=== PATIENT | male | born 2000 | race Caucasian/White ===

== ENCOUNTER 2024-12-21 16:48 | Emergency (ER) | payer OTHER, SELFPAY ==
--- OUTSIDE RECORDS SUMMARY | 2024-12-21 16:56 | XMS_ITS | Clinical Summary ---
Author Organization [facility] Address [address] [place] [address] Care Team Providers Care Director Of Operations Support Name Role Phone Unavailable Primary Care Provider Unavailabl e Social History Tobacco Use Types Packs/Day Years Used Date Smoking Tobacco: Never Assessed Sex and Gender Information Value Date Recorded Sex Assigned at Not on file Legal Sex Male 11:13 AM [employer] Gender Identity Not on file Sexual Orientation Not on file Plan of Treatment Health Maintenance Due Date Last Done Comments Hepatitis C Virus (HCV) Screening 1999 TdaP Immunization 1999 Human Papillomavirus (HPV) Immunization (1 - Male 3-dose series) 2014 Hepatitis B Immunization (1 of 3 - 19+ 3-dose series) 2018 Influenza Immunization (#1) 2024 09/02/2020 SARS-COV-2 Immunization ( - 2023- season) 2024 Respiratory Syncytial Virus (RSV) Immunization (Adult) (1 - 1-dose 75+ series) 2074 Meningococcal Immunization (ACWY) Aged Out No longer eligible based on patient's age to complete this topic Pneumococcal Immunization Combined Aged Out No longer eligible based on patient's age to complete this topic Rotavirus Immunization Aged Out No lo nger eligible based on patient's age to complete this topic Insurance [employer] on file
[2024-12-21 17:09] VITALS: BP 138/67; PULSE 67; RESP 16; TEMP 37; O2SAT 99
--- NOTE | 2024-12-21 17:37 | ED_ITS ---
HPI - General Adult General Chief complaint: Extremity Injury, Lower Stated complaint: Swollen/Pain Toe Time Seen by Provider: 12/21/24 17:20 Source: patient, RN notes reviewed and old records reviewed Mode of arrival: ambulatory Limitations: no limitations History of Present Illness HPI narrative: 24 year old male who presents to [facility] care with complaints of pain and swelling to the left great toe with redness around the top of his nail bed this morning. 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 This morning after his run he noted increased redness and swelling of left great toe at the top of his nail bed. Patient has no fluctuation of tissue around nail bed or any bruising noted. Patient has strong left pedal pulse.Patient has taken some Ibuprofen for his discomfort. MD complaint: left great toe pain and redness Onset (ago): hour(s) (this morning increased pain after run) Location: left and lower extremity (great toe) Severity: mild Treatments prior to arrival: NSAID Related Data Allergies Allergy/AdvReac Type Severity Reaction Status Date / Time No Known Allergies Allergy Verified 12/21/24 17:18 Review of Systems Review of Systems: CONSTITUTIONAL: Denies fever, chills, or sweats. CARDIOVASCULAR: Denies chest pain, palpitations, or edema. RESPIRATORY: Denies cough or dyspnea. GASTROINTESTINAL: Denies abdominal pain, nausea, vomiting SKIN: Reports redness and swelling to the lleft great toe along top of nail bed, no fluctuation of tissue no purulent drainage, vesicles, bullae, numbness,no pain beyond proportion MUSCULOSKELETAL: Denies myalgia. NEUROLOGIC: Denies headache, numbness All systems reviewed & are unremarkable except as noted in HPI and below PMFSH Social History Social History (Updated 12/23/24 @ 20:36 by Michelle Weaver NP) Smoking status: Never smoker Alcohol intake: current Alcohol use details: social Substance use type: does not use Living arrangements: with family Gender identity (if verbalized by the patient): Male Comments At time of signature, agree with nursing past medical, surgical, social and family history. There is no relevant family history pertinent to the presenting complaint Exam Narrative: GENERAL: Well-appearing, well-nourished, and in no acute distress. HEAD: Normocephalic, atraumatic. EYES: PERRLA and EOMI. ENT: Nares clear, no rhinorrhea or epistaxis. Mucous membranes moist. NECK: Supple. CHEST: Clear to auscultation. No respiratory distress.SAO2 99% on room air HEART: Regular rate and rhythm. No murmur heard. Normal peripheral pulses. ABDOMEN: Soft, nontender, nondistended, normal active bowel sounds. EXTREMITIES: Normal range of motion. No edema. SKIN: Warm, dry. Erythema, induration, tenderness to the tissue around top of nail bed of left great toe. no warmth, No vesicles, bullae, necrosis, or, ecchymosis. NEURO: No focal deficits. Alert and oriented x3. Course Course Emergency Course: Patient is aware of diagnosis, understands and agrees to treatment plan. Anticipatory guidance given. Patient agrees to follow-up as directed and is aware of reasons to seek care at the emergency department. Portions of this record may have been created with voice recognition software Level of Care: Express Care Visit Vital Signs Vital signs: Vital Signs Temperature 37.0 C 12/21/24 17:09 Pulse Rate 67 12/21/24 17:09 Respiratory Rate 16 12/21/24 17:09 Blood Pressure 138/67 12/21/24 17:09 Pulse Oximetry 99 12/21/24 17:09 Oxygen Delivery Room Air 12/21/24 17:09 Temperature 37.0 C 12/21/24 17:09 Pulse Rate 12/21/24 17:09 Respiratory Rate 16 12/21/24 17:09 Blood Pressure 138/67 12/21/24 17:09 Pulse Oximetry 99 12/21/24 17:09 Oxygen Delivery Room Air 12/21/24 17:09 Reviewed Medical Decision Making Differential Diagnosis Differential Diagnosis: irritation and redness of left great toe, paronychia, Pain along top of left great toe nail bed. Medical Records Medical records reviewed: Yes I reviewed the external patient's medical records. Vital Signs Vital Signs: Vital Signs Temperature 37.0 C 12/21/24 17:09 Pulse Rate 12/21/24 17:09 Respiratory Rate 16 12/21/24 17:09 Blood Pressure 138/67 12/21/24 17:09 Pulse Oximetry 99 12/21/24 17:09 Oxygen Delivery Room Air 12/21/24 17:09 Temperature 37.0 C 12/21/24 17:09 Pulse Rate 12/21/24 17:09 Respiratory Rate 16 12/21/24 17:09 Blood Pressure 138/67 12/21/24 17:09 Pulse Oximetry 99 12/21/24 17:09 Oxygen Delivery Room Air 12/21/24 17:09 reviewed Critical Care Time Critical Care Time Critical Care Time: No Discharge Plan Discharge Clinical Impression: Paronychia of great toe, left Patient Disposition: Home, Self-Care Condition: Stable Instructions: Antibiotic Form, Paronychia (ED) Additional Instructions: Soak left great foot in warm soapy water with liquid Dial soap rinse and apply mupirocin ointment to reddened area twice daily watch for increasing infection--redness, swelling, drainage Tylenol or ibuprofen for any fever pain follow up with PCP in 7-10 days for a wound check recheck if develop fever, chills, increasing symptom Go to the ER if your symptoms become worse of if ANY new symptoms develop Antibiotics as prescribed complete all doses If your symptoms persist, change or worsen significantly before you can contact your personal physician then please, without delay, go to the emergency department for further evaluation. Follow-up with PCP in 7-10 days or sooner if needed Follow up with PCP soon in regards to your blood pressure which is elevated above threshold for referral. Blood pressure above 120/80 may indicate pre- hypertension. 138/67 Patient Language: Nepali Prescriptions: New mupirocin [Centany] 2 % ointment 1 applic topical BID Qty: 22 0RF cephalexin 500 mg capsule 500 mg PO Q8H Qty: 21 0RF Follow-up/Referrals: PHYSICIAN NOT ON STAFF,NONSTAFF [Primary Care Provider] - Time of Disposition: 17:56 Quality [place] Coma Scale Eyes: Open Verbal: Oriented and Alert Motor: Follows Commands [place] Coma Total Score: 15
== END 2024-12-21 18:00 | disposition home or self-care (01) ==
PROVIDERS: Emergency Provider Registered Nurse
DX: L03.032 Cellulitis of left toe (principal)
CPT/HCPCS: 99203; G0463